=== PATIENT | male | born 1975 | race Caucasian/White ===

== ENCOUNTER 2017-12-24 17:38 | Emergency (ER) | payer SELFPAY ==
[~2017-12-24] VITALS: Ht 172.7 cm; Wt 107.0 kg
[2017-12-24 17:53] LABS: MICROSCOPIC NOT IND
[2017-12-24] MEDS ORDERED: SODIUM CHLORIDE 0.9% 1,000ML IVBOLUS ONE (18:00)
[2017-12-24 18:12] LABS: PH, VENOUS 7.373 pH (7.320-7.420)
[2017-12-24 18:13] LABS: BASOPHILS # (AUTO) 0.05 x10^3/uL (0-0.1); BASOPHILS % (AUTO) 1 % (0-1); EOSINOPHILS # (AUTO) 0.27 x10^3/uL (0-0.4); EOSINOPHILS % (AUTO) 3 % (1-7); LYMPHOCYTES # (AUTO) 2.23 x10^3/uL (1-3.4); LYMPHOCYTES % (AUTO) 24 % (22-44); MD NO; MEAN CORPUSCULAR HEMOGLOBIN 29.8 pg (27.5-34.5); MEAN CORPUSCULAR HGB CONC 33.7 g/dL (33.2-36.2); MEAN CORPUSCULAR VOLUME 88.3 fL (81-97); MEAN PLATELET VOLUME 7.5 fL (7.4-10.4); MONOCYTES # (AUTO) 1.01 x10^3/uL (0.2-0.8); MONOCYTES % (AUTO) 11 % (2-9); NEUTROPHILS # (AUTO) 5.91 x10^3/uL (1.8-6.8); NEUTROPHILS % (AUTO) 62 % (42-75); PLATELET COUNT 289 x10^3/uL (130-400); RED BLOOD COUNT 4.51 x10^6/uL (4.38-5.82); RED CELL DISTRIBUTION WIDTH 12.8 % (9.4-14.8)
[2017-12-24 18:21] LABS: ACETONE, SERUM Negative (Negative)
[2017-12-24 18:26] LABS: ALANINE AMINOTRANSFERASE 17 U/L (12-78); ALBUMIN 2.8 g/dL (3.4-5.0); ANION GAP 7 mmol/L (5-15); CHLORIDE 106 mmol/L (98-107); CREATININE 0.83 mg/dL (0.7-1.3)
[2017-12-24 18:28] LABS: ALKALINE PHOSPHATASE 84 U/L (45-117); BILIRUBIN,TOTAL 0.4 mg/dL (0.2-1.0); TOTAL PROTEIN 6.1 g/dL (6.4-8.2)
[2017-12-24] MEDS ORDERED: INSULIN REGULAR 100 UNITS/ML, 3ML VIAL ONE (18:43)
[2017-12-24 18:49] VITALS: BP 91/52
[2017-12-24] MEDS ORDERED: INSULIN REGULAR 100 UNITS/ML, 3ML VIAL SQ-INSULIN ONE (19:00)
== END 2017-12-24 19:16 | disposition home or self-care (01) ==
LOC: ED 18:55
DX: E11.65 Type 2 diabetes mellitus with hyperglycemia (principal)
CPT/HCPCS: 36415; 80053; 81003; 82010; 82803; 82962; 85025; 96360; 96372; 99284; J7030